=== PATIENT | female | born 1940 | race Caucasian/White ===

== ENCOUNTER 2024-11-04 12:55 | Emergency (ER) | payer BC, OTHER ==
[2024-11-04 13:28] VITALS: BMI 20.5
[2024-11-04 14:32] LABS: BASO % 2.1 % (0-2.0); EOS % 0.5 % (0-4.5); HEMOGLOBIN 9.9 GM/dL (10.7-15.3); LYMPH % 21.5 % (8-40); MCH 28.3 pg (25.7-33.7); MEAN CELL VOLUME 88.6 fl (80-96); MEAN PLT VOLUME 9.5 fl (7.5-11.1); NEUT % 69.9 % (42.8-82.8); PLATELET COUNT 207 10^3/uL (134-434); RDW 19.5 % (11.6-15.6); WHITE BLOOD COUNT 6.2 K/mm3 (4.0-10.0)
[2024-11-04 15:44] LABS: CHLORIDE 106 mmol/L (98-107); POTASSIUM 3.9 mmol/L (3.5-5.1); SODIUM 139 mmol/L (136-145)
[2024-11-04 15:46] LABS: CALCIUM 8.9 mg/dL (8.5-10.1)
[2024-11-04 15:47] LABS: ANION GAP 11 mmol/L (4-13); BLOOD UREA NITROGEN 18.7 mg/dL (7-18); CO2 22 mmol/L (21-32); GLUCOSE,RANDOM 143 mg/dL (74-106); MAGNESIUM 1.8 mg/dL (1.8-2.4)
[2024-11-04 15:50] LABS: CREATININE 0.8 mg/dL (0.55-1.3); PHOSPHOROUS 3.4 mg/dL (2.5-4.9); SGOT/AST 24 U/L (15-37); SGPT/ALT 14 U/L (13-61)
[2024-11-04 15:52] LABS: BILIRUBIN,TOTAL 1.4 mg/dL (0.2-1); TOT PROT 7.6 g/dl (6.4-8.2)
[2024-11-04 15:53] LABS: ALK PHOS 78 U/L (45-117)
[2024-11-04] MEDS ORDERED: ACETAMINOPHEN INJECTION 100 ML ONE (16:33)
[2024-11-04] MEDS: ACETAMINOPHEN 1000 MG/100 ML BAG IVPB ONE (16:40)
[2024-11-04] MEDS ORDERED: oxyCODONE HCL 5 MG TABLET ONE (22:52)
[2024-11-04] MEDS: oxyCODONE HCL 5 MG TABLET PO ONE (23:04)
[2024-11-04 23:16] VITALS: BP 122/68; PULSE 72; RESP 19; TEMP 97.9
== END 2024-11-04 23:16 | disposition home or self-care (01) ==
LOC: JER 12:55
PROC: 3E033NZ Introduction of Analgesics, Hypnotics, Sedatives into Peripheral Vein, Percutaneous Approach (ICD-10-PCS; principal; 2024-11-04)
DX: S00.03XA Contusion of scalp, initial encounter (principal); W06.XXXA Fall from bed, initial encounter
CPT/HCPCS: 0241U-QW; 36415; 70450-TC; 71045-TC-FY; 72125-TC; 72170-TC-FY; 80053; 82550; 83690; 83735; 84100; 84484; 85025; 86850; 86870; 86880; 86900; 86901; 86902; 93005; 93010; 99284-25; J0131